=== PATIENT | male | born 1955 | race Caucasian/White ===

== ENCOUNTER 2025-03-06 07:51 | Outpatient (CLI) | payer MEDICARE, SELFPAY ==
--- NOTE | 2025-03-06 09:15 | CRLHL7_ITS ---
For Patients: As a result of the Century Cures Act, medical imaging exams and procedure reports are released immediately into your electronic medical record. You may view this report before your referring provider. If you have questions, please contact your health care provider. Indication: History of nicotine dependence. Technique: PA and lateral views of the chest. Comparison: None. Findings: The cardiomediastinal silhouette and pulmonary vasculature are within normal limits. The lungs are clear. No pleural effusion or pneumothorax is identified. There are degenerative changes of aging throughout the thoracic spine. No acute bone or joint abnormality is seen. Impression: No acute abnormality. Consider low-dose lung cancer screening CT regimen as clinically warranted. Dictated by Kaushik Abreu MD @ 03/06/2025 10:36:16 AM (Electronically Signed)
== END 2025-03-06 07:52 | disposition home or self-care (01) ==
PROVIDERS: PCP Student in an Organized Health Care Education/Training Program; Referring Provider Internal Medicine; Visit Provider Nurse Practitioner Family
DX: N30.41 Irradiation cystitis with hematuria (principal); R97.21 Rising PSA following treatment for malignant neoplasm of prostate; E78.5 Hyperlipidemia, unspecified; Y84.2 Radiological procedure and radiotherapy as the cause of abnormal reaction of the patient, or of later complication, without mention of misadventure at the time of the procedure; Z87.891 Personal history of nicotine dependence
CPT/HCPCS: 71046; G0463

== ENCOUNTER 2025-04-04 08:00 | Outpatient (RCR) | payer MEDICARE, SELFPAY | END 2025-04-05 23:59 | disposition home or self-care (01) | LOC: WOUND 08:00 | PROVIDERS: PCP Student in an Organized Health Care Education/Training Program; Visit Provider Nurse Practitioner Family | DX: N30.41 Irradiation cystitis with hematuria (principal); R97.21 Rising PSA following treatment for malignant neoplasm of prostate; E78.5 Hyperlipidemia, unspecified; Z87.891 Personal history of nicotine dependence; Y84.2 Radiological procedure and radiotherapy as the cause of abnormal reaction of the patient, or of later complication, without mention of misadventure at the time of the procedure | CPT/HCPCS: G0277 ==

== ENCOUNTER 2025-04-10 07:51 | Outpatient (CLI) | payer MEDICARE, SELFPAY | END 2025-04-10 07:52 | disposition home or self-care (01) | LOC: WOUND 07:52 | PROVIDERS: PCP Student in an Organized Health Care Education/Training Program; Visit Provider Nurse Practitioner Family | DX: N30.41 Irradiation cystitis with hematuria (principal); R97.21 Rising PSA following treatment for malignant neoplasm of prostate; E78.5 Hyperlipidemia, unspecified; Z87.891 Personal history of nicotine dependence; Y84.2 Radiological procedure and radiotherapy as the cause of abnormal reaction of the patient, or of later complication, without mention of misadventure at the time of the procedure | CPT/HCPCS: G0277; G0463 ==

== ENCOUNTER 2025-05-01 07:58 | Outpatient (CLI) | payer MEDICARE, SELFPAY | END 2025-05-01 07:59 | disposition home or self-care (01) | LOC: WOUND 07:58 | PROVIDERS: PCP Student in an Organized Health Care Education/Training Program; Visit Provider Nurse Practitioner Family | DX: N30.41 Irradiation cystitis with hematuria (principal); R97.21 Rising PSA following treatment for malignant neoplasm of prostate; E78.5 Hyperlipidemia, unspecified; Z87.891 Personal history of nicotine dependence; Y84.2 Radiological procedure and radiotherapy as the cause of abnormal reaction of the patient, or of later complication, without mention of misadventure at the time of the procedure | CPT/HCPCS: G0277; G0463 ==

== ENCOUNTER 2025-05-05 08:00 | Outpatient (RCR) | payer MEDICARE, SELFPAY | END 2025-05-05 23:59 | disposition home or self-care (01) | LOC: WOUND 08:00 | PROVIDERS: PCP Student in an Organized Health Care Education/Training Program; Visit Provider Nurse Practitioner Family | DX: N30.41 Irradiation cystitis with hematuria (principal); R97.21 Rising PSA following treatment for malignant neoplasm of prostate; E78.5 Hyperlipidemia, unspecified; Z87.891 Personal history of nicotine dependence | CPT/HCPCS: 99183; G0277 ==

== ENCOUNTER 2025-05-28 08:00 | Outpatient (RCR) | payer MEDICARE, SELFPAY | END 2025-06-05 23:59 | disposition home or self-care (01) | LOC: WOUND 08:00 | PROVIDERS: PCP Student in an Organized Health Care Education/Training Program; Visit Provider Physician Assistant | DX: N30.41 Irradiation cystitis with hematuria (principal); R97.21 Rising PSA following treatment for malignant neoplasm of prostate; E78.5 Hyperlipidemia, unspecified; Y84.2 Radiological procedure and radiotherapy as the cause of abnormal reaction of the patient, or of later complication, without mention of misadventure at the time of the procedure; Z87.891 Personal history of nicotine dependence | CPT/HCPCS: 99183; G0277 ==